=== PATIENT | female | born 1980 | race African-American/Black ===

== ENCOUNTER 2018-02-28 19:06 | Emergency (ER) | payer BC ==
[~2018-02-28] VITALS: Ht 165.1 cm; Wt 163.3 kg
[~2018-02-28 19:06] MED LIST: ALBU2.5V8 INH; AZIT250T PO; BENZ200C47 PO; LISI1TAB7 PO; PRED20TA PO
[2018-02-28 19:20] VITALS: BP 159/104
--- NOTE | 2018-02-28 19:45 | PHYS DOC ---
Past Medical History Past Medical History: Hypertension Past Surgical History: Tonsillectomy, Other Additional Past Surgical Histo: foot surgery Alcohol Use: None Drug Use: None Adult General Chief Complaint Chief Complaint: COUGH HPI HPI Patient is a 37 year old female who presents with cough and sore throat. This has been present for the past month, getting worse over time. Worse with laying down. There is nasal congestion that started straining when she lays down. Low- grade fever is present. Patient did receive the flu vaccine this year. No PE risk factors. Symptoms are currently mild to moderate. No leg swelling.[] Review of Systems Review of Systems Constitutional: Denies fever or chills [] Eyes: Denies change in visual acuity, redness, or eye pain [] HENT: See history of present illness[] Respiratory: See history of present illness[] Cardiovascular: No chest pain or palpitations[] GI: Denies abdominal pain, nausea, vomiting, bloody stools or diarrhea [] : Denies dysuria or hematuria [] Musculoskeletal: Denies back pain or joint pain [] Integument: Denies rash or skin lesions [] Neurologic: Denies headache, focal weakness or sensory changes [] Endocrine: Denies polyuria or polydipsia [] All other systems were reviewed and found to be within normal limits, except as documented in this note. Allergies Allergies Allergies Coded Allergies Type Severity Reaction Last Updated Verified No Known Drug Allergies 01/27/13 No Physical Exam Physical Exam Constitutional: Well developed, well nourished, no acute distress, non-toxic appearance. [] HENT: Normocephalic, atraumatic, bilateral external ears normal, oropharynx moist, no oral exudates, nose normal. [] Eyes: PERRLA, EOMI, conjunctiva normal, no discharge. [] Neck: Normal range of motion, no tenderness, supple, no stridor. [] Cardiovascular:Heart rate regular rhythm, no murmur [] Lungs & Thorax: Bilateral breath sounds clear to auscultation [] Abdomen: Bowel sounds normal, soft, no tenderness, no masses, no pulsatile masses. [] Skin: Warm, dry, no erythema, no rash. [] Back: No tenderness, no CVA tenderness. [] Extremities: No tenderness, no cyanosis, no clubbing, ROM intact, no edema. [] Neurologic: Alert and oriented X 3, normal motor function, normal sensory function, no focal deficits noted. [] Psychologic: Affect normal, judgement normal, mood normal. [] Current Patient Data Vital Signs Vital Signs Date Time Temp Pulse Resp B/P (MAP) Pulse Ox O2 Delivery O2 Flow Rate FiO2 02/28/18 19:20 99.9 102 20 159/104 (122) 96 Room Air 99.9 EKG EKG [] Radiology/Procedures Radiology/Procedures Chest x-ray showed no infiltrate, no effusion, no pneumothorax[] Course & Med Decision Making Course & Med Decision Making Pertinent Labs and Imaging studies reviewed. (See chart for details) ED course: Patient arrived, was placed in bed, tolerate exam well. After the return of lab and imaging findings, these were discussed with the patient voiced understanding. All questions were answered. Patient was discharged in improved condition. Decision-making: There is no evidence of hypoxia, pneumonia, pneumothorax, strep pharyngitis, peritonsillar abscess, nor systemic toxicity.[] Dragon Disclaimer Dragon Disclaimer This electronic medical record was generated, in whole or in part, using a voice recognition dictation system. Departure Departure Impression: Primary Impression: Bronchitis Disposition: HOME, SELF-CARE Condition: GOOD Referrals: KELLE JETER MD (PCP) Follow-up in 2 days Patient Instructions: Bronchitis Additional Instructions: Follow-up with your regular doctor in 2 days. Drink plenty of fluids. Return to the ER if worsening difficulty breathing or any other concerns. Scripts D-Methorphan Hb/Prometh Hcl (PROMETHAZINE-DM SYRUP) 118 Ml Syrup 5 ML PO PRN Q4HRS, #120 ML Prov: HANNAH MARCIAL DO 02/28/18 Albuterol Sulfate (VENTOLIN HFA INHALER) 18 Gm Hfa.aer.ad 2 PUFF INH Q4HRS for FOR ASTHMA, #1 INHALER 0 Refills Prov: HANNAH MARCIAL DO 02/28/18 HANNAH MARCIAL DO Feb 28, 2018 19:45
[2018-02-28] MEDS ORDERED: VENTOLIN HFA18 GM INH (20:43)
[2018-02-28] MEDS ORDERED: D-ME118S2 PO (20:43)
--- NOTE | 2018-03-01 07:43 | RAD ---
EXAM: PA and Lateral Views of the Chest DATE: 02/28/2018 7:37 PM INDICATION: ER PATIENT. PRODUCTIVE COUGHT WITH GREEN AND YELLOW SPUTUM, CONGESTION X1 MONTH. Hx HTN COMPARISON: 01/11/2016 FINDINGS: The heart is not enlarged. Mediastinal and hilar contours are normal. No focal parenchymal airspace opacity. A very vague opacities projecting over the suprahilar regions bilaterally is favored to be artifactual. No pleural effusion or pneumothorax. IMPRESSION: 1. No radiographic evidence for acute cardiopulmonary process. Electronically signed by: Jj Leigh MD (03/01/2018 7:39 AM) [facility]
== END 2018-02-28 21:05 | disposition home or self-care (01) ==
LOC: ER 19:06
DX: J40 Bronchitis, not specified as acute or chronic (principal); I10 Essential (primary) hypertension
CPT/HCPCS: 71046; 87070; 87880; 99284-25